=== PATIENT | female | born 1985 | race Caucasian/White ===

== ENCOUNTER 2023-01-29 09:27 | Emergency (ER) | payer SELFPAY ==
[2023-01-29] MEDS ORDERED: Diazepam 5 MG TAB ONE ×2 (10:01→10:40)
[2023-01-29] MEDS ORDERED: Lidocaine Viscous Sol 2% 15 ml UD Cup ONE (10:01)
== END 2023-01-29 12:40 | disposition home or self-care (01) ==
LOC: MADERS 09:27
DX: T16.2XXA Foreign body in left ear, initial encounter (principal); F17.210 Nicotine dependence, cigarettes, uncomplicated; X58.XXXA Exposure to other specified factors, initial encounter
CPT/HCPCS: 69200

== ENCOUNTER 2023-04-24 11:57 | Emergency (ER) | payer OTHER | END 2023-04-24 13:05 | disposition home or self-care (01) | LOC: MADERS 11:57 | DX: J06.9 Acute upper respiratory infection, unspecified (principal); F17.210 Nicotine dependence, cigarettes, uncomplicated | CPT/HCPCS: 99282 ==

== ENCOUNTER 2023-05-08 12:58 | Emergency (ER) | payer OTHER ==
[2023-05-08] MEDS ORDERED: Acetaminophen 325 MG TAB ONE (15:09)
== END 2023-05-08 17:10 | disposition home or self-care (01) ==
LOC: MADERS 12:58
DX: O03.9 Complete or unspecified spontaneous abortion without complication (principal); F17.210 Nicotine dependence, cigarettes, uncomplicated; Z3A.10 10 weeks gestation of pregnancy
CPT/HCPCS: 36415; 76815; 84702

== ENCOUNTER 2023-06-26 23:20 | Emergency (ER) | payer OTHER ==
[2023-06-26] MEDS ORDERED: diphenhydrAMINE 25 MG CAP ONE (23:46)
[2023-06-26] MEDS ORDERED: Mag-Al Plus 1200/1200/120 MG (30 mL) UDCUP ONE (23:46)
[2023-06-26] MEDS ORDERED: Lidocaine 2% Viscous 100 ML BOTTLE ONE (23:48)
== END 2023-06-27 00:16 | disposition home or self-care (01) ==
LOC: MADERS 23:20
DX: K20.91 Esophagitis, unspecified with bleeding (principal); T63.481A Toxic effect of venom of other arthropod, accidental (unintentional), initial encounter; F17.210 Nicotine dependence, cigarettes, uncomplicated
CPT/HCPCS: 71046; 93005